=== PATIENT | female | born 1935 | race Caucasian/White ===

== ENCOUNTER 2017-07-08 04:23 | Observation (INO) | payer MEDICARE ==
[~2017-07-08] VITALS: Ht 180.3 cm; Wt 68.4 kg
[~2017-07-08 04:23] MED LIST: ACET325 PO; ANAS1 PO; ARTHIRITIS MED; CALCAVITDA PO; CALCIUM 600 +1 EAC2 PO; CALGLU500 PO; CEPH500 PO; DIVA250EC PO; HYDACE5 PO; LEVFLO500 PO; MECL12.5 PO; MELO7.5 PO; MELOXICAM 7.5 MG PO; Percocet 5-3251 EACH PO; SIMV10 PO; Simvastatin10 MG PO; ZOCOR 10 MG PO; Zofran Odt4 MG SL
[2017-07-08 05:36] LABS: BASOPHILS ABSOLUTE AUTO 0.06 K/mm3 (0.00-0.23); BASOPHILS PERCENT AUTO 1 % (0-2); EOSINOPHILS ABSOLUTE AUTO 0.14 K/mm3 (0.00-0.68); EOSINOPHILS PERCENT AUTO 1 % (0-6); Hematocrit 44.4 % (33.0-51.0); Hemoglobin 14.3 g/dL (11.5-16.0); IMMATURE GRAN ABSOLUTE AUTO 0.09 K/mm3 (0.00-0.10); IMMATURE GRAN PERCENT AUTO 1 % (0-1); LYMPHOCYTES ABSOLUTE AUTO 1.62 K/mm3 (0.84-5.20); LYMPHOCYTES PERCENT AUTO 17 % (21-46); MONOCYTES ABSOLUTE AUTO 0.66 K/mm3 (0.16-1.47); MONOCYTES PERCENT AUTO 7 % (4-13); Mean Corpuscular HGB 30.4 pg (26.0-34.0); Mean Corpuscular HGB Conc 32.2 g/dL (31.5-36.5); Mean Corpuscular Volume 95 fL (80-100); Mean Platelet Volume 11.2 fL (9.1-12.4); NEUTROPHILS ABSOLUTE AUTO 7.17 K/mm3 (1.96-9.15); NEUTROPHILS PERCENT AUTO 74 % (41-73); Platelet Count 166 K/mm3 (150-400); RDW Coefficient Variation 12.5 % (11.7-14.2); White Blood Cell Count 9.74 K/mm3 (4.00-11.30)
[2017-07-08 05:47] LABS: International Normalized Ratio 1.01; Prothrombin Time Results 10.5 Sec (9.7-11.5)
[2017-07-08] MEDS ORDERED: METO50 PO (05:59)
[2017-07-08 06:04] LABS: Alanine Aminotransfer (ALT/SGP 20 U/L (12-78); Albumin, Blood 3.2 g/dL (3.4-5.0); Albumin/Globulin Ratio 0.8 (0.8-1.8); Alk Phos 56 U/L (50-136); Anion Gap 8 mmol/L (6-16); Aspartate Aminotrans (AST/SGOT 24 U/L (12-37); Bilirubin, Total 0.4 mg/dL (0.1-1.0); Blood Urea Nitrogen 16 mg/dL (8-24); Bun/Creatinine Ratio 16.3 (12.0-20.0); CO2, Blood 23 mmol/L (21-32); Calcium, Blood 8.9 mg/dL (8.5-10.1); Chloride, Blood 111 mmol/L (98-108); Creatinine, Blood 0.98 mg/dL (0.40-1.00); Glomerular Filtration Rate 58 (60-); Glucose, Blood 106 mg/dL (70-99); Potassium, Blood 3.5 mmol/L (3.5-5.5); Sodium, Blood 142 mmol/L (136-145); Total Protein, Blood 7.2 g/dL (6.4-8.2); Troponin I <0.015 ng/mL (0.000-0.040)
[2017-07-09] MEDS ORDERED: LEVE500 PO (09:47)
== END 2017-07-09 10:18 | disposition home or self-care (01) ==
LOC: ER 04:23 → MEDS 04:24
PROVIDERS: Emergency Medicine
DX: G40.909 Epilepsy, unspecified, not intractable, without status epilepticus (principal); I67.82 Cerebral ischemia; E78.5 Hyperlipidemia, unspecified; M19.90 Unspecified osteoarthritis, unspecified site; I10 Essential (primary) hypertension; Z85.3 Personal history of malignant neoplasm of breast; Z95.0 Presence of cardiac pacemaker; Z88.5 Allergy status to narcotic agent; Z79.899 Other long term (current) drug therapy; Z79.1 Long term (current) use of non-steroidal anti-inflammatories (NSAID)
CPT/HCPCS: 36415; 70450; 71046; 80053; 84484; 85025; 85610; 93005; 93010; 95819; 96365; 96366; 96375; 96376; 99285; G0378; J1953; J2405; J7030; P9612

== ENCOUNTER → 2019-06-14 | Outpatient (CLI) | payer MEDICARE ==
[~2019-06-14] MED LIST changes: +LEVE500 PO; +METO50 PO
== END | disposition home or self-care (01) ==
LOC: LAB SHORT 16:30 → LAB EV 16:30
DX: N39.0 Urinary tract infection, site not specified (principal)
CPT/HCPCS: 87086; 87147

== ENCOUNTER → 2019-08-08 | Outpatient (CLI) | payer MEDICARE ==
[~2019-08-08] MED LIST changes: +Norco 5-325 Ta1 EACH PO; +ONDA4ODT MM
== END | disposition home or self-care (01) ==
LOC: LAB SHORT 14:21 → LAB EV 14:21
DX: M54.5 Low back pain (principal); R30.9 Painful micturition, unspecified
CPT/HCPCS: 87086; 87147

== ENCOUNTER → 2019-12-07 | Outpatient (CLI) | payer MEDICARE ==
[2019-12-07 17:44] LABS: BASOPHILS ABSOLUTE AUTO 0.07 K/mm3 (0.00-0.23); BASOPHILS PERCENT AUTO 1 % (0-2); EOSINOPHILS ABSOLUTE AUTO 0.14 K/mm3 (0.00-0.68); EOSINOPHILS PERCENT AUTO 1 % (0-6); Hematocrit 43.7 % (33.0-51.0); Hemoglobin 14.5 g/dL (11.5-16.0); IMMATURE GRAN ABSOLUTE AUTO 0.04 K/mm3 (0.00-0.10); IMMATURE GRAN PERCENT AUTO 0 % (0-1); LYMPHOCYTES ABSOLUTE AUTO 1.49 K/mm3 (0.84-5.20); LYMPHOCYTES PERCENT AUTO 11 % (21-46); MONOCYTES ABSOLUTE AUTO 1.25 K/mm3 (0.16-1.47); MONOCYTES PERCENT AUTO 9 % (4-13); Mean Corpuscular HGB 30.7 pg (26.0-34.0); Mean Corpuscular HGB Conc 33.2 g/dL (31.5-36.5); Mean Corpuscular Volume 92 fL (80-100); Mean Platelet Volume 12.1 fL (9.1-12.4); NEUTROPHILS ABSOLUTE AUTO 10.48 K/mm3 (1.96-9.15); NEUTROPHILS PERCENT AUTO 78 % (41-73); Platelet Count 152 K/mm3 (150-400); RDW Coefficient Variation 13.1 % (11.7-14.2); RDW Standard Deviation 43.8 fL (35.1-46.3); Red Blood Cell Count 4.73 M/mm3 (3.80-5.20); White Blood Cell Count 13.47 K/mm3 (4.00-11.30)
[2019-12-07 17:58] LABS: Anion Gap 8 mmol/L (6-16); Blood Urea Nitrogen 15 mg/dL (8-24); Bun/Creatinine Ratio 12.8 (12.0-20.0); CO2, Blood 25 mmol/L (21-32); Calcium, Blood 9.4 mg/dL (8.5-10.1); Chloride, Blood 105 mmol/L (98-108); Creatinine, Blood 1.17 mg/dL (0.40-1.00); Glomerular Filtration Rate 44 (60-); Glucose, Blood 107 mg/dL (70-99); Potassium, Blood 3.9 mmol/L (3.5-5.5); Sodium, Blood 138 mmol/L (136-145)
[2019-12-07 17:59] LABS: Troponin I <0.017 ng/mL (0.000-0.040)
[2019-12-09 12:03] LABS: CORNONAVIRUS (COVID19) CSH-NRL Negative (Negative)
== END | disposition home or self-care (01) ==
LOC: LAB EV 17:41 → LAB SHORT 17:41
PROVIDERS: Family Medicine
DX: R50.9 Fever, unspecified (principal); R07.9 Chest pain, unspecified; N39.0 Urinary tract infection, site not specified; Z20.828 Contact with and (suspected) exposure to other viral communicable diseases
CPT/HCPCS: 80048; 84484; 85025; 87077; 87086; 87186; U0003

== ENCOUNTER → 2019-12-08 | Outpatient (CLI) | payer MEDICARE ==
[2019-12-08 16:13] LABS: BASOPHILS ABSOLUTE AUTO 0.06 K/mm3 (0.00-0.23); BASOPHILS PERCENT AUTO 1 % (0-2); EOSINOPHILS ABSOLUTE AUTO 0.16 K/mm3 (0.00-0.68); EOSINOPHILS PERCENT AUTO 1 % (0-6); Hematocrit 42.2 % (33.0-51.0); Hemoglobin 13.9 g/dL (11.5-16.0); IMMATURE GRAN ABSOLUTE AUTO 0.05 K/mm3 (0.00-0.10); IMMATURE GRAN PERCENT AUTO 0 % (0-1); LYMPHOCYTES ABSOLUTE AUTO 1.67 K/mm3 (0.84-5.20); LYMPHOCYTES PERCENT AUTO 14 % (21-46); MONOCYTES ABSOLUTE AUTO 1.22 K/mm3 (0.16-1.47); MONOCYTES PERCENT AUTO 10 % (4-13); Mean Corpuscular HGB 30.5 pg (26.0-34.0); Mean Corpuscular HGB Conc 32.9 g/dL (31.5-36.5); Mean Corpuscular Volume 93 fL (80-100); NEUTROPHILS ABSOLUTE AUTO 8.72 K/mm3 (1.96-9.15); NEUTROPHILS PERCENT AUTO 73 % (41-73); Platelet Count 152 K/mm3 (150-400); RDW Coefficient Variation 13.1 % (11.7-14.2); RDW Standard Deviation 43.9 fL (35.1-46.3); Red Blood Cell Count 4.55 M/mm3 (3.80-5.20); White Blood Cell Count 11.88 K/mm3 (4.00-11.30)
== END | disposition home or self-care (01) ==
LOC: LAB SHORT 16:08 → LAB 16:08
PROVIDERS: Family Medicine
DX: N39.0 Urinary tract infection, site not specified (principal)
CPT/HCPCS: 85025

== ENCOUNTER 2021-03-17 08:47 | Inpatient (IN) | payer MEDICARE ==
[~2021-03-17] VITALS: Ht 167.6 cm; Wt 74.8 kg
[2021-03-17 09:09] LABS: BASOPHILS ABSOLUTE AUTO 0.02 K/mm3 (0.00-0.23); BASOPHILS PERCENT AUTO 0 % (0-2); EOSINOPHILS PERCENT AUTO 0 % (0-6); Hematocrit 46.8 % (33.0-51.0); Hemoglobin 15.6 g/dL (11.5-16.0); IMMATURE GRAN ABSOLUTE AUTO 0.04 K/mm3 (0.00-0.10); IMMATURE GRAN PERCENT AUTO 0 % (0-1); LYMPHOCYTES ABSOLUTE AUTO 0.95 K/mm3 (0.84-5.20); LYMPHOCYTES PERCENT AUTO 6 % (21-46); MONOCYTES ABSOLUTE AUTO 1.15 K/mm3 (0.16-1.47); MONOCYTES PERCENT AUTO 8 % (4-13); Mean Corpuscular HGB 30.2 pg (26.0-34.0); Mean Corpuscular HGB Conc 33.3 g/dL (31.5-36.5); Mean Corpuscular Volume 91 fL (80-100); Mean Platelet Volume 12.4 fL (9.1-12.4); NEUTROPHILS ABSOLUTE AUTO 13.23 K/mm3 (1.96-9.15); NEUTROPHILS PERCENT AUTO 86 % (41-73); Platelet Count 164 K/mm3 (150-400); RDW Coefficient Variation 12.8 % (11.7-14.2); RDW Standard Deviation 41.8 fL (35.1-46.3); Red Blood Cell Count 5.16 M/mm3 (3.80-5.20); White Blood Cell Count 15.39 K/mm3 (4.00-11.30)
[2021-03-17 09:42] LABS: Albumin, Blood 3.5 g/dL (3.4-5.0); Albumin/Globulin Ratio 0.9 (0.8-1.8); Bilirubin, Total 1.3 mg/dL (0.1-1.0); Bun/Creatinine Ratio 20.7 (12.0-20.0); Calcium, Blood 9.3 mg/dL (8.5-10.1); Creatinine, Blood 1.4 mg/dL (0.40-1.00); Globulin, Blood 4.1 g/dL (2.2-4.0); Potassium, Blood 3.9 mmol/L (3.5-5.5); Total Protein, Blood 7.6 g/dL (6.4-8.2)
[2021-03-17] MEDS ORDERED: VITAMIN D310 MC1 PO (10:56)
[2021-03-17] MEDS ORDERED: POTA10T PO (10:56)
[2021-03-17] MEDS ORDERED: B-12500 MC2 PO (10:56)
[2021-03-17] MEDS ORDERED: Percocet 5-3251 EACH (10:56)
[2021-03-17] MEDS ORDERED: METO50ER PO (12:11)
[2021-03-17] MEDS ORDERED: OMEP20ER PO (12:13)
[2021-03-17 12:48] LABS: Influenza A, PCR NEGATIVE (NEGATIVE); Influenza B, PCR NEGATIVE (NEGATIVE); Resp Syncytial Virus, PCR NEGATIVE (NEGATIVE); SARS-Cov-2 (COVID-19) PCR, MMC NEGATIVE (NEGATIVE)
--- NOTE | 2021-03-17 15:42 | NUR ---
03/17/21 1542 Mayte Oswald PT ON SCHEDULED ANTIBIOTICS CONFIRMED WITH DR VALENTINE.
--- NOTE | 2021-03-18 03:53 | NUR ---
SHIFT SUMMARY- A/O X4- POD1 LAP CHOLECTOMY. LAP SITES COVERED WITH STERI STRIPS, SCANT AMOUNT OF RED DRIED DRAINAGE, ABDOMEN SLIGHTLY DISTENDED. TOLERATING CLEAR LIQUIDS. PAIN CONTROLLED PER EMAR. AMBULATING TO BATHROOM, VOIDING WELL. VSS. WILL CONTINUE TO MONITOR AND REPORT TO ONCOMING RN.
[2021-03-18 04:40] LABS: BASOPHILS ABSOLUTE AUTO 0.01 K/mm3 (0.00-0.23); BASOPHILS PERCENT AUTO 0 % (0-2); EOSINOPHILS PERCENT AUTO 0 % (0-6); Hematocrit 38.6 % (33.0-51.0); Hemoglobin 12.3 g/dL (11.5-16.0); IMMATURE GRAN ABSOLUTE AUTO 0.01 K/mm3 (0.00-0.10); IMMATURE GRAN PERCENT AUTO 0 % (0-1); LYMPHOCYTES ABSOLUTE AUTO 0.67 K/mm3 (0.84-5.20); LYMPHOCYTES PERCENT AUTO 7 % (21-46); MONOCYTES PERCENT AUTO 9 % (4-13); Mean Corpuscular HGB 30.6 pg (26.0-34.0); Mean Corpuscular HGB Conc 31.9 g/dL (31.5-36.5); Mean Platelet Volume 12.8 fL (9.1-12.4); NEUTROPHILS ABSOLUTE AUTO 8.55 K/mm3 (1.96-9.15); NEUTROPHILS PERCENT AUTO 84 % (41-73); Platelet Count 135 K/mm3 (150-400); RDW Standard Deviation 45.5 fL (35.1-46.3); Red Blood Cell Count 4.02 M/mm3 (3.80-5.20); White Blood Cell Count 10.14 K/mm3 (4.00-11.30)
[2021-03-18 04:41] LABS: Mean Corpuscular Volume 96 fL (80-100)
[2021-03-18 05:26] LABS: Albumin, Blood 2.6 g/dL (3.4-5.0); Albumin/Globulin Ratio 0.8 (0.8-1.8); Bilirubin, Total 0.6 mg/dL (0.1-1.0); Bun/Creatinine Ratio 23.1 (12.0-20.0); Calcium, Blood 7.9 mg/dL (8.5-10.1); Creatinine, Blood 1.17 mg/dL (0.40-1.00); Globulin, Blood 3.1 g/dL (2.2-4.0); Potassium, Blood 4.2 mmol/L (3.5-5.5); Total Protein, Blood 5.7 g/dL (6.4-8.2)
--- NOTE | 2021-03-18 16:39 | NUR ---
SUMMARY: PT IS POD1 LAP TR. A/O, VSS. SURGICAL SITES WNL. PT AMBULATING WELL WITH SBA, ABLE TO WORK WITH THERAPY. VOIDING WELL AND MINIMAL PAIN. TOLERATING REG DIET. NO ACUTE SAFETY CONCERNS, WILL CTM AND REPORT TO LUIS JEFFERY.
[2021-03-19 03:47] LABS: BASOPHILS ABSOLUTE AUTO 0.06 K/mm3 (0.00-0.23); BASOPHILS PERCENT AUTO 1 % (0-2); EOSINOPHILS PERCENT AUTO 1 % (0-6); Hematocrit 37.2 % (33.0-51.0); Hemoglobin 11.8 g/dL (11.5-16.0); IMMATURE GRAN ABSOLUTE AUTO 0.03 K/mm3 (0.00-0.10); IMMATURE GRAN PERCENT AUTO 0 % (0-1); LYMPHOCYTES ABSOLUTE AUTO 1.65 K/mm3 (0.84-5.20); LYMPHOCYTES PERCENT AUTO 17 % (21-46); MONOCYTES ABSOLUTE AUTO 1.35 K/mm3 (0.16-1.47); MONOCYTES PERCENT AUTO 14 % (4-13); Mean Corpuscular HGB 30.5 pg (26.0-34.0); Mean Corpuscular HGB Conc 31.7 g/dL (31.5-36.5); Mean Corpuscular Volume 96 fL (80-100); Mean Platelet Volume 12.4 fL (9.1-12.4); NEUTROPHILS ABSOLUTE AUTO 6.28 K/mm3 (1.96-9.15); NEUTROPHILS PERCENT AUTO 66 % (41-73); Platelet Count 139 K/mm3 (150-400); RDW Coefficient Variation 12.9 % (11.7-14.2); RDW Standard Deviation 45.1 fL (35.1-46.3); Red Blood Cell Count 3.87 M/mm3 (3.80-5.20); White Blood Cell Count 9.47 K/mm3 (4.00-11.30)
[2021-03-19 04:11] LABS: Albumin, Blood 2.7 g/dL (3.4-5.0); Albumin/Globulin Ratio 0.8 (0.8-1.8); Bilirubin, Total 0.6 mg/dL (0.1-1.0); Bun/Creatinine Ratio 19.2 (12.0-20.0); Calcium, Blood 8.2 mg/dL (8.5-10.1); Creatinine, Blood 1.3 mg/dL (0.40-1.00); Globulin, Blood 3.4 g/dL (2.2-4.0); Potassium, Blood 3.6 mmol/L (3.5-5.5); Total Protein, Blood 6.1 g/dL (6.4-8.2)
--- NOTE | 2021-03-19 05:06 | NUR ---
SHIFT SUMMARY A/O X4. VSS. POD2 LAP TR. TOLERATING PO INTAKE, VOIDING AND PASSING STOOL. PAIN MANAGED WITH TYLENOL. STAND BY ASSIST TO BATHROOM WITH CANE. HAS WORKED WITH PHYSICAL THERAPY AND CLEARED. WILL CONTINUE TO MONITOR AND REPORT TO ONCOMING RN.
--- NOTE | 2021-03-19 10:52 | NUR ---
PT. DISHCARGED AT 1035 TO HOME. DC INSTRUCTIONS GIVEN AND EXPLAINED. PATIENT VERBALIZE UNDERSTANDING OF DC INSTRUCTIONS. IV R FA REMOVED. BELONGINGS SENT WITH PT., W/C TO EXIT. HERE TO TAKE PT. HOME.
--- NOTE | 2021-03-19 12:46 | NUR ---
Per chart review with Dr. Damico, patient appropriate for discharge this morning. Patient's provided transportation at D/C. Patient denied barriers to discharge and feels safe to return home. No needs anticipated. Patient scheduled for a hospital follow-up with her PCP RAINA Morales on Friday, March 21, 2021 at 11:00 AM. Patient agreeable to time and date of appointment.
== END 2021-03-19 10:41 | disposition home or self-care (01) | DRG 418 ==
LOC: ER 08:47 → ERHOLD 12:17 → SURS 12:17
PROVIDERS: Emergency Medicine; Surgery; ADMIT Family Medicine
PROC: 0FT44ZZ Resection of Gallbladder, Percutaneous Endoscopic Approach (ICD-10-PCS; principal; 2021-03-17 15:15)
DX: K80.01 Calculus of gallbladder with acute cholecystitis with obstruction (principal); N17.9 Acute kidney failure, unspecified; I47.1 Supraventricular tachycardia; G40.909 Epilepsy, unspecified, not intractable, without status epilepticus; J44.9 Chronic obstructive pulmonary disease, unspecified; E78.5 Hyperlipidemia, unspecified; Z66 Do not resuscitate; Z85.3 Personal history of malignant neoplasm of breast; Z88.5 Allergy status to narcotic agent; Z88.8 Allergy status to other drugs, medicaments and biological substances; Z91.018 Allergy to other foods; Z95.0 Presence of cardiac pacemaker; N18.31 Chronic kidney disease, stage 3a; Z90.710 Acquired absence of both cervix and uterus; Z90.10 Acquired absence of unspecified breast and nipple; Z79.899 Other long term (current) drug therapy; M19.90 Unspecified osteoarthritis, unspecified site
CPT/HCPCS: 0241U; 36415; 74019; 76705; 80053; 83690; 85025; 88304; 93005; 93010; 96365; 96375; 97116; 97161; 97530; 99285-25; A9270; J0295; J1100; J1170; J2370; J2405; J2704; J3010; J7050; J7120

== ENCOUNTER → 2021-06-06 | Outpatient (CLI) | payer MEDICARE ==
[~2021-06-06] MED LIST changes: +B-12500 MC2 PO; +METO50ER PO; +OMEP20ER PO; +POTA10T PO; +Percocet 5-3251 EACH; +VITAMIN D310 MC1 PO
[2021-06-06 14:58] LABS: Adenovirus F 40/41 Not Detected (NOT DETECT); Astrovirus Not Detected (NOT DETECT); Campylobacter Sp Not Detected (NOT DETECT); Cryptosporidium Not Detected (NOT DETECT); Cyclospora Cayetanensis Not Detected (NOT DETECT); E. Coli O157 Not Detected (NOT DETECT); Entamoeba Histolytica Not Detected (NOT DETECT); Enteroaggregative E. coli-EAEC Not Detected (NOT DETECT); Enteropathogenic E. coli-EPEC Not Detected (NOT DETECT); Enterotoxigenic E. coli-ETEC Not Detected (NOT DETECT); Giardia Lamblia Not Detected (NOT DETECT); Norovirus GI/GII Not Detected (NOT DETECT); Plesiomonas Shigelloides Not Detected (NOT DETECT); Rotavirus A Not Detected (NOT DETECT); Salmonella Sp Not Detected (NOT DETECT); Sapovirus Not Detected (NOT DETECT); Shiga Toxin-prod E. coli-STEC Not Detected (NOT DETECT); Shigella/Enteroin E. coli-EIEC Not Detected (NOT DETECT); Vibrio Cholerae Not Detected (NOT DETECT); Vibrio Sp Not Detected (NOT DETECT); Yersinia Enterocolitica Not Detected (NOT DETECT)
== END | disposition home or self-care (01) ==
LOC: LAB SHORT 05:20
PROVIDERS: Physician Assistant Medical
DX: K52.9 Noninfective gastroenteritis and colitis, unspecified (principal)
CPT/HCPCS: 87507

== ENCOUNTER 2021-08-12 12:49 | Inpatient (IN) | payer MEDICARE ==
[~2021-08-12] VITALS: Ht 165.1 cm; Wt 56.7 kg
[~2021-08-12 12:49] MED LIST changes: +AMOCLA875 PO; +Cipro500 MG PO; +Incruse Ellipta 62.5 INH; +KLOR-CON 1010 ME1 PO; +Keppra PO; +METO25ER PO
[2021-08-12 13:28] LABS: Hematocrit 29.6 % (33.0-51.0); Hemoglobin 9.3 g/dL (11.5-16.0); Mean Corpuscular HGB Conc 31.4 g/dL (31.5-36.5); Mean Corpuscular Volume 99 fL (80-100); Mean Platelet Volume 11.5 fL (9.1-12.4); Platelet Count 238 K/mm3 (150-400); RDW Coefficient Variation 13.5 % (11.7-14.2); RDW Standard Deviation 47.8 fL (35.1-46.3)
[2021-08-12 13:30] LABS: White Blood Cell Count 16.19 K/mm3 (4.00-11.30)
[2021-08-12 13:38] LABS: Albumin, Blood 2.7 g/dL (3.4-5.0); Albumin/Globulin Ratio 0.9 (0.8-1.8); Bilirubin, Total 0.3 mg/dL (0.1-1.0); Calcium, Blood 8.4 mg/dL (8.5-10.1); Globulin, Blood 3.1 g/dL (2.2-4.0); Potassium, Blood 4.3 mmol/L (3.5-5.5); Total Protein, Blood 5.8 g/dL (6.4-8.2)
[2021-08-12 13:49] LABS: BASOPHILS PERCENT MAN 0 % (0-2); EOSINOPHILS PERCENT MAN 0 % (0-6); LYMPHOCYTES ABSOLUTE MAN 1.61 K/mm3 (0.84-5.20); LYMPHOCYTES PERCENT MAN 10 % (21-46); MONOCYTES PERCENT MAN 5 % (4-13); NEUTROPHILS ABSOLUTE MAN 13.76 K/mm3 (1.96-9.15); SEG NEUTROPHILS PERCENT MAN 85 % (41-73); TOTAL CELLS COUNTED 100
[2021-08-12] MEDS ORDERED: FAMO10 PO (16:44)
[2021-08-12] MEDS ORDERED: METFORMIN HCL500 M3 PO (17:07)
[2021-08-12] MEDS ORDERED: triamterene 75 mg-hy PO (17:08)
[2021-08-12] MEDS ORDERED: OMEP20ER PO (19:34)
[2021-08-12 19:52] LABS: BASOPHILS ABSOLUTE AUTO 0.08 K/mm3 (0.00-0.23); BASOPHILS PERCENT AUTO 1 % (0-2); EOSINOPHILS ABSOLUTE AUTO 0.13 K/mm3 (0.00-0.68); EOSINOPHILS PERCENT AUTO 1 % (0-6); Hematocrit 29.9 % (33.0-51.0); Hemoglobin 9.7 g/dL (11.5-16.0); IMMATURE GRAN ABSOLUTE AUTO 0.07 K/mm3 (0.00-0.10); IMMATURE GRAN PERCENT AUTO 1 % (0-1); LYMPHOCYTES ABSOLUTE AUTO 2.01 K/mm3 (0.84-5.20); LYMPHOCYTES PERCENT AUTO 13 % (21-46); MONOCYTES ABSOLUTE AUTO 0.88 K/mm3 (0.16-1.47); MONOCYTES PERCENT AUTO 6 % (4-13); Mean Corpuscular HGB 30.6 pg (26.0-34.0); Mean Corpuscular HGB Conc 32.4 g/dL (31.5-36.5); Mean Platelet Volume 11.4 fL (9.1-12.4); NEUTROPHILS ABSOLUTE AUTO 12.04 K/mm3 (1.96-9.15); NEUTROPHILS PERCENT AUTO 79 % (41-73); Platelet Count 197 K/mm3 (150-400); RDW Coefficient Variation 14.7 % (11.7-14.2); RDW Standard Deviation 50.8 fL (35.1-46.3); Red Blood Cell Count 3.17 M/mm3 (3.80-5.20); White Blood Cell Count 15.21 K/mm3 (4.00-11.30)
[2021-08-12 19:53] LABS: Mean Corpuscular Volume 94 fL (80-100)
--- NOTE | 2021-08-12 20:00 | NUR ---
ADMISSION: PT IS A/OX4. SHE ARRIVED TO THE FLOOR VIA WHEELCHAIR AND AMBULATED TO THE BED W/O ASSISTANCE. SHE USES A CANE @ BASELINE AND A FWW INTERMITTENTLY. SHE IS GENERALLY WEAK AND WILL BE A 1 PA W/ FWW TO BSC OR BR. SHE HAS TELE, PULSE OX, AND SCDs IN PLACE. SHE WAS RECENTLY HERE FOR A GI BLEED. SHE DID RECEIVE 1 UNIT OF PRBCs IN THE ED AND HER LAST HGB WAS 9.7. SHE DOES NOT REPORT ANY PAIN, NAUSEA, OR ANY OTHER C/O. SHE WAS ABLE TO TOLERATE SOME CHX BROTH, JELLO, AND SOME H20 ON HER CLEAR LIQUID DIET; THE PT IS NOW RESTING IN BED. SHE HAS THE CALL LIGHT WITHIN REACH AND WE'LL CONTINUE TO MONITOR.
[2021-08-13 05:53] LABS: BASOPHILS ABSOLUTE AUTO 0.09 K/mm3 (0.00-0.23); BASOPHILS PERCENT AUTO 1 % (0-2); EOSINOPHILS ABSOLUTE AUTO 0.39 K/mm3 (0.00-0.68); EOSINOPHILS PERCENT AUTO 3 % (0-6); Hematocrit 26.9 % (33.0-51.0); Hemoglobin 8.6 g/dL (11.5-16.0); IMMATURE GRAN ABSOLUTE AUTO 0.07 K/mm3 (0.00-0.10); IMMATURE GRAN PERCENT AUTO 1 % (0-1); LYMPHOCYTES ABSOLUTE AUTO 2.22 K/mm3 (0.84-5.20); LYMPHOCYTES PERCENT AUTO 15 % (21-46); MONOCYTES ABSOLUTE AUTO 0.89 K/mm3 (0.16-1.47); MONOCYTES PERCENT AUTO 6 % (4-13); Mean Corpuscular HGB 31.3 pg (26.0-34.0); Mean Corpuscular Volume 98 fL (80-100); Mean Platelet Volume 11.6 fL (9.1-12.4); NEUTROPHILS ABSOLUTE AUTO 10.81 K/mm3 (1.96-9.15); NEUTROPHILS PERCENT AUTO 75 % (41-73); Platelet Count 188 K/mm3 (150-400); RDW Coefficient Variation 15.2 % (11.7-14.2); RDW Standard Deviation 54.4 fL (35.1-46.3); Red Blood Cell Count 2.75 M/mm3 (3.80-5.20); White Blood Cell Count 14.47 K/mm3 (4.00-11.30)
[2021-08-13 06:24] LABS: Albumin, Blood 2.4 g/dL (3.4-5.0); Anion Gap 6 mmol/L (6-16); Blood Urea Nitrogen 24 mg/dL (8-24); Bun/Creatinine Ratio 26.3 (12.0-20.0); CO2, Blood 24 mmol/L (21-32); Calcium, Blood 8.5 mg/dL (8.5-10.1); Chloride, Blood 115 mmol/L (98-108); Creatinine, Blood 0.91 mg/dL (0.40-1.00); Glomerular Filtration Rate 62 (60-); Glucose, Blood 117 mg/dL (70-99); Magnesium, Blood 1.9 mg/dL (1.6-2.4); Phosphorus, Blood 2.4 mg/dL (2.5-4.9); Potassium, Blood 3.6 mmol/L (3.5-5.5); Sodium, Blood 145 mmol/L (136-145)
--- NOTE | 2021-08-13 06:36 | NUR ---
SHIFT SUMMARY: PT IS A/OX4. SHE ANSWERED ALL QUESTIONS APPROPRIATELY. THE PT USES HER CALL LIGHT FOR NEEDS, ESPECIALLY GETTING OOB. SHE IS A 2 PA TO THE BSC NOW, D/T HER WEAKNESS. SHE HAD NO C/O OF PAIN OR NAUSEA, BUT WHEN SHE AMBULATED TO THE BATHROOM SHE STATED THAT SHE FELT LIGHT-HEADED. HER BED ALARM IS SET FOR SAFETY AND THE CALL LIGHT IS WITHIN REACH.
--- NOTE | 2021-08-13 14:43 | NUR ---
LATE ENTRY 1020: PT CALLED RN FOR ASSISTANCE TO THE BSC FOR A BM. PT WEAK, DIZZY & LIGHTHEADED. UNABLE TO STAND. ASSISTED PT TO USE THE BEDPAN. MED SIZE DARK BLOODY LIQ STOOL. WHILE CLEANING PT, SHE VOMITED MODERATE AMOUNT DARK RUST COLORED EMESIS. PT DIAPHORETIC, C/O NAUSEA, WEAKNESS. PT ASKED RN, "AM I GOING TO ?" VITALS OBTAINED, BP LOW (SEE VITALS) H&H THIS MORNING 8.6 & 26.9. PLACED CALL TO DR. VALDERRAMA, ORDERS RECEIVED. ULTIMATELY CAME TO SEE PT. ORDERS RECIEVED FOR PT TO BE PCU STATUS. PT ENDED UP GOING TO ICU. REPORT CALLED TO ICU NURSE BONILLA. PT TRANSFERRED VIA BED TO ICU 1 AT 1140.
--- NOTE | 2021-08-13 14:59 | NUR ---
PROVIDER PHONE CALL: Dr Valdez notified of continued hypotension post PRBC and 1.5L bolus. Telephone order for norepi through [employer].
[2021-08-13 15:14] LABS: Hematocrit 26.5 % (33.0-51.0); Hemoglobin 8.7 g/dL (11.5-16.0)
--- NOTE | 2021-08-13 19:25 | NUR ---
SHIFT SUMMARY: Pt transferred to ICU from medical floor today for hypovolemic shock. Bilateral powerglides started Upon arrival to ICU she received 2 units of PRBC, 1.5 L NS, and was started on 3mcg of levophed before she went to IR. No bleed found in IR. Right IJ placed in IR. Third unit of PRBC started when pt retured and levophed placed on standby. Protonix infusing. Right groin site soft without bleeding or ecchymosis; peripheral pulses strong.
[2021-08-13 19:29] LABS: Influenza A, PCR NEGATIVE (NEGATIVE); Influenza B, PCR NEGATIVE (NEGATIVE); Resp Syncytial Virus, PCR NEGATIVE (NEGATIVE); SARS-Cov-2 (COVID-19) PCR, MMC NEGATIVE (NEGATIVE)
--- NOTE | 2021-08-13 20:18 | NUR ---
ATTEMPTED TO CALL DR YUNG CONCERNING RIGHT LOWER ABD SWELLING AND BACK PAIN. AWAITING RETURN CALL. PT VSS AT THIS TIME W/ 1 UNIT PRBC INFUSING W/OUT COMPLICATION.
--- NOTE | 2021-08-13 20:24 | NUR ---
SPOKE TO DR YUNG, HE REQUESTS FOR HOSPITALIST TO SEE PT SINCE HE IS NOT AT HOSPITAL. SPOKE TO DR SANCHEZ AND HE IS COMING TO SEE THE PT.
--- NOTE | 2021-08-13 21:20 | NUR ---
DR SANCHEZ AT BEDSIDE
[2021-08-13 23:55] LABS: Hematocrit 33.2 % (33.0-51.0); Hemoglobin 11.3 g/dL (11.5-16.0)
--- NOTE | 2021-08-14 01:10 | NUR ---
PT HAD A SIGNIFICANT DROP IN BP OVER A SHORT PERIOD OF TIME REQUIRING LEVOPHED TO BE RESTARTED. PT IS UP TO 10MCGS AT THIS TIME. SHE ALSO PASSED A LARGE AMOUNT OF LIQUID MAROON STOOL. SHE IS ALERT BUT PALE AND STATES SHE "DOESN'T FEEL RIGHT" SPOKE TO DR ZELAYA, STAT H&H WAS DRAWN AND SENT. CHARGE NURSE LARA UPDATED WELL.
[2021-08-14 01:16] LABS: Hematocrit 30.8 % (33.0-51.0); Hemoglobin 10.4 g/dL (11.5-16.0)
--- NOTE | 2021-08-14 01:35 | NUR ---
DOC TO DOC UPDATE VIA [facility] TRANSFER COORD (DR ZEALYA TO DR LAZO), WITH PT STATUS. CONT TO AWAIT BED ASSIGNMENT.
--- NOTE | 2021-08-14 01:50 | NUR ---
PT HAS HAD SEVERAL MORE MAROON STOOLS. LEVOPHED INCREASED TO 12MCGS.
--- NOTE | 2021-08-14 02:09 | NUR ---
PT HAS A BED ASSIGNMENT AT [facility]. REPORT GIVEN TO TODD. PT GOING VIA AIR TO 7A ROOM 9. PT IS CURRENTLY ON 18MCG OF LEVOPHED, PROTONIX GTT, NS AND PRBC INFUSING. PT IS ALERT AND ORIENTED AT THIS TIME. I SPOKE TO PT ABOUT PLAN OF CARE.
--- NOTE | 2021-08-14 02:54 | NUR ---
PT WAS TAKEN VIA HELICOPTER TO [facility]. SHE WAS SENT ON 16MCGS OF LEVOPHED, PROTONIX GTT, AND A UNIT OF PRBC TO BE INFUSED. SHE WAS ON ROOM AIR IN NO ACUTE DISTRESS, ALERT AND ORIENTED AT TIME OF DEPARTURE. PT SPOUSE WAS CALLED AND UPDATED ON PT TRANSFER AND CONDITION.
== END 2021-08-14 02:50 | disposition short-term general hospital (02) | DRG 377 ==
LOC: ER 12:49 → ICUE 17:22 → MEDS 17:22 → ICUE 08-13 11:30
PROVIDERS: Emergency Medicine; Internal Medicine; ADMIT Family Medicine
PROC: 30233N1 Transfusion of Nonautologous Red Blood Cells into Peripheral Vein, Percutaneous Approach (ICD-10-PCS; principal; 2021-08-12)
PROC: 3E033XZ Introduction of Vasopressor into Peripheral Vein, Percutaneous Approach (ICD-10-PCS; 2021-08-12)
PROC: B4151ZZ Fluoroscopy of Inferior Mesenteric Artery using Low Osmolar Contrast (ICD-10-PCS; 2021-08-13)
PROC: B4141ZZ Fluoroscopy of Superior Mesenteric Artery using Low Osmolar Contrast (ICD-10-PCS; 2021-08-13)
PROC: B4131ZZ Fluoroscopy of Splenic Arteries using Low Osmolar Contrast (ICD-10-PCS; 2021-08-13)
PROC: B41J1ZZ Fluoroscopy of Other Lower Arteries using Low Osmolar Contrast (ICD-10-PCS; 2021-08-13)
PROC: 02HV33Z Insertion of Infusion Device into Superior Vena Cava, Percutaneous Approach (ICD-10-PCS; 2021-08-13)
PROC: B5181ZA Fluoroscopy of Superior Vena Cava using Low Osmolar Contrast, Guidance (ICD-10-PCS; 2021-08-13)
DX: K92.2 Gastrointestinal hemorrhage, unspecified (principal); R57.8 Other shock; D62 Acute posthemorrhagic anemia; E78.5 Hyperlipidemia, unspecified; Z66 Do not resuscitate; M19.90 Unspecified osteoarthritis, unspecified site; I95.9 Hypotension, unspecified; J44.9 Chronic obstructive pulmonary disease, unspecified; G40.909 Epilepsy, unspecified, not intractable, without status epilepticus; I12.9 Hypertensive chronic kidney disease with stage 1 through stage 4 chronic kidney disease, or unspecified chronic kidney disease; N18.9 Chronic kidney disease, unspecified; Z90.49 Acquired absence of other specified parts of digestive tract; Z90.710 Acquired absence of both cervix and uterus; Z88.5 Allergy status to narcotic agent; Z91.018 Allergy to other foods; Z91.011 Allergy to milk products; Z79.899 Other long term (current) drug therapy; Z85.3 Personal history of malignant neoplasm of breast; Z79.2 Long term (current) use of antibiotics; Z79.84 Long term (current) use of oral hypoglycemic drugs; Z20.822 Contact with and (suspected) exposure to COVID-19; I73.9 Peripheral vascular disease, unspecified
CPT/HCPCS: 0241U; 36245; 36247; 36415; 36430; 71045; 74176; 75726; 76937; 80053; 80069; 82330; 83735; 85014; 85018; 85025; 86850; 86900; 86901; 86923; 93005; 93010; 99152; 99153; 99285-25; A9270; C1725; C1751; C1760; C1769; C1887; C1894; C9113; J1644; J1953; J2405; J3010; J7030; J7040; P9016; Q9967

== ENCOUNTER → 2021-12-12 | Outpatient (CLI) | payer MEDICARE ==
[~2021-12-12] MED LIST changes: +FAMO10 PO; +METFORMIN HCL500 M3 PO; +triamterene 75 mg-hy PO
[2021-12-12 15:31] LABS: Creatinine, Urine Random 75.2 mg/dL (27.00-270.00); Microalb/Creat Ratio UR, Rand 280.585 mg/g (0.000-30.000)
== END | disposition home or self-care (01) ==
LOC: LAB 10:15 → LAB SHORT 10:15
PROVIDERS: Physician Assistant
DX: I12.9 Hypertensive chronic kidney disease with stage 1 through stage 4 chronic kidney disease, or unspecified chronic kidney disease (principal); N18.31 Chronic kidney disease, stage 3a
CPT/HCPCS: 82043; 82570